=== PATIENT | male | born 1995 | race Caucasian/White ===

== ENCOUNTER 2017-03-06 16:39 | Emergency (ER) | payer OTHER ==
[2017-03-06 16:45] VITALS: RESP 16
[2017-03-06] MEDS ORDERED: ACETAMINOPHEN 500 MG TAB PO ONE (17:41)
[2017-03-06] MEDS ORDERED: IBUPROFEN 600 MG TAB PO ONE (17:41)
[2017-03-06] MEDS ORDERED: DEXAMETHASONE 4 MG TAB PO ONE (18:36)
[2017-03-06] MEDS ORDERED: ONDANSETRON DISINTEGRATING 4 MG TAB PO ONE (18:36)
[2017-03-06] MEDS ORDERED: KETOROLAC 30 MG/1 ML SDV IM ONE (18:36)
--- NOTE | 2017-03-06 18:42 | EDPHY ---
H & P Time Seen by Provider: 03/06/17 18:07 HPI/ROS: HPI Flu. 21-year-old male by private vehicle. This patient was diagnosed with influenza yesterday at the [facility]. He reports he is still symptomatic. He has been taking Tylenol and ibuprofen. He complains of arthralgias and myalgias, fever, sore throat, mild cough, chills and nausea. He has also had a couple of episodes of vomiting yesterday. He reports his onset of symptoms being about a week ago. ROS: Constitutional: As above. No weakness. Eyes: No discharge. No changes in vision. ENT: As above. No nasal congestion or rhinorrhea. Respiratory: No cough. No shortness of breath. Cardiac: No chest pain, no palpitations. Gastrointestinal: No abdominal pain, as above, no diarrhea. Genitourinary: No hematuria. No dysuria or increased frequency with urination. Musculoskeletal: As above. Skin: No rashes. Neurological: No headache. No focal weakness or altered sensation. Past medical history: Asthma, attention deficit hyperactivity disorder. Social history: Student [email or web address]. Here by himself. Nonsmoker. No alcohol. Physical Exam: General Appearance: Alert, no distress. This patient is responding to questions appropriately and in full sentences. This patient appears well- hydrated and well-nourished. No voice changes. Eyes: Pupils equal and round no pallor or injection. No lid edema, erythema or injection. ENT, Mouth: Mucous membranes are moist. Mild pharyngeal uvular erythema. No edema or swelling. No asymmetry suggestive of abscess. No exudates. No stridor on auscultation of his neck. Respiratory: There are no retractions, lungs are clear to auscultation with good air movement bilaterally. No tachypnea. No wheezing or rhonchi. Cardiovascular: Regular rate and rhythm. Mild tachycardia. No murmur. Gastrointestinal: Abdomen is soft and nontender, no masses, bowel sounds normal. No focal tenderness at McBurney's point. No Garcia sign. Neurological: Motor sensory function is grossly intact. Cranial nerves are normal. Gait is normal. Skin: Warm and dry, no rashes. Musculoskeletal: Neck is supple and nontender. No cervical or submandibular lymphadenopathy. Extremities are symmetrical. All joints range without pain or impingement. Psychiatric: No agitation. No depression. Database: EKG: Imaging: Chest x-ray PA and lateral; the cardiac mediastinal silhouette is unremarkable. No evidence of infiltrate or pneumothorax. Mild bronchitis. No other acute cardiopulmonary disease process noted. Interpreted by me. Procedures: Emergency department course: Vital signs reviewed. He is febrile and low-grade tachycardia. Vital signs otherwise normal. He was given a g of Tylenol in triage and 600 mg of ibuprofen. After my evaluation I discussed contraindications to NSAIDs. He has none. No renal dysfunction. No history of peptic ulcer disease. He was given a 1 time 60 mg IM dose of Toradol. He was given 12 mg of oral Decadron for treatment of his throat pain and inflammation. He was also given 4 mg of ODT Zofran. The patient does feel comfortable going home. I will discharge him with a 1 time dose of Decadron to be taken tomorrow evening as well as a prescription for Zofran. Follow-up and return to emergency department precautions reviewed with him. All of his questions were answered. He was discharged in good condition. Differential Diagnosis: The differential diagnosis on this patient includes but is not limited to influenza, viral syndrome. Streptococcal pharyngitis, serious bacterial infection unlikely. This represents a partial list of diagnoses considered. These considerations are based on history, physical exam, past history, reassessment and diagnostic testing. Smoking Status: Former smoker Constitutional: Initial Vital Signs Temperature (C) 38.4 C H 03/06/17 16:41 Heart Rate 108 H 03/06/17 16:41 Respiratory Rate 16 03/06/17 16:41 Blood Pressure 131/65 H 03/06/17 16:41 O2 Sat (%) 97 03/06/17 16:41 O2 Delivery Mode Room Air Allergies/Adverse Reactions: No Known Allergies Allergy (Verified 03/06/17 16:41) Home Medications: Medication Instructions Recorded Albuterol Sulfate [Proair Hfa] 03/06/17 Dexamethasone [Decadron 4 MG (RX)] 8 mg PO ONCE #2 tab 03/06/17 Lisdexamfetamine Dimesylate 20 mg PO 03/06/17 [Vyvanse] Ondansetron Odt [Zofran Odt 4 mg 4 mg PO Q4PRN PRN #10 tab 03/06/17 (*)] Oseltamivir Phosphate [Tamiflu 75 75 mg PO 03/06/17 mg (*)] Medical Decision Making - Diagnostics Imaging Results: Imaging Impressions Chest X-Ray 03/06/17 18:09 Impression: No pneumonia . Suspect bronchitis. - Data Points Medications Given: Discontinued Medications Acetaminophen (Tylenol) 1,000 mg PO EDNOW ONE Stop: 03/06/17 17:42 Last Admin: 03/06/17 17:52 Dose: 1,000 mg Ibuprofen (Motrin) 600 mg PO EDNOW ONE Stop: 03/06/17 17:42 Last Admin: 03/06/17 17:53 Dose: 600 mg Departure - Departure Disposition: Home, Routine, Self-Care Clinical Impression: Influenza Condition: Good Instructions: Influenza (ED) Additional Instructions: Read and follow provided instructions. Follow-up with your primary care physician at the [facility] in 1-2 days for re-evaluation. Take medication as prescribed. 1 time dose of Decadron, 8 mg to be taken tomorrow evening. Do not start taking ibuprofen until at the earliest tomorrow morning. Ibuprofen dosin mg every 6 hours with meals for the next 3 days only. Take only as needed for pain and fever. Take Tylenol as directed for fever. Return to the emergency department for worsening symptoms or other serious concerns. Referrals: [facility],. [Clinic] - As per Instructions Prescriptions: Dexamethasone [Decadron 4 MG (RX)] 8 mg PO ONCE #2 tab Ondansetron Odt [Zofran Odt 4 mg (*)] 4 mg PO Q4PRN PRN #10 tab PRN Reason: For Nausea & Vomiting
[2017-03-06 19:30] VITALS: BP 138/74; PULSE 64; TEMP 97.7; O2SAT 98
== END 2017-03-06 19:30 | disposition home or self-care (01) ==
LOC: EEVIPCON 16:39
DX: J11.1 Influenza due to unidentified influenza virus with other respiratory manifestations (principal); J45.909 Unspecified asthma, uncomplicated; Z87.891 Personal history of nicotine dependence
CPT/HCPCS: J1885